=== PATIENT | female | born 1985 | race Caucasian/White ===

== ENCOUNTER 2017-12-03 20:23 | Emergency (ER) | payer OTHER ==
[2017-12-03 21:15] LABS: APPEARANCE,URINE SLIGHTLY-CLOUDY; BILIRUBIN,URINE NEGATIVE (NEGATIVE); COLOR,URINE YELLOW; GLUCOSE, URINE NEGATIVE (NEGATIVE); KETONES,URINE TRACE mg/dL (NEGATIVE); LEUKOCYTE ESTERASE,URINE NEGATIVE (NEGATIVE); NITRITE,URINE NEGATIVE (NEGATIVE); PROTEIN,URINE NEGATIVE (NEGATIVE); URINE SPECIFIC GRAVITY 1.028
[2017-12-03 21:23] LABS: ABSOLUTE BASOPHILS # (AUTO) 0.1 10^3/uL (0.0-0.2); ABSOLUTE EOSINOPHILS # (AUTO) 0.2 10^3/uL (0.0-0.6); ABSOLUTE LYMPHOCYTES (AUTO) 2.4 10^3/uL (0.5-4.7); ABSOLUTE MONOCYTES (AUTO) 0.7 10^3/uL (0.1-1.4); BASOPHILS % (AUTO) 1.1 % (0-2); EOSINOPHILS % (AUTO) 2.1 % (0-6); HEMATOCRIT 41.6 % (36.0-47.0); HEMOGLOBIN 14.2 g/dL (12.0-15.5); MEAN CORPUSCULAR HEMOGLOBIN 29.6 pg (27.0-33.4); MEAN CORPUSCULAR HGB CONC 34.3 g/dL (32.0-36.0); MEAN CORPUSCULAR VOLUME 87 fl (80-97); MONOCYTES % (AUTO) 7.2 % (3-13); PLATELET COUNT 245 10^3/uL (150-450); RED BLOOD COUNT 4.81 10^6/uL (3.72-5.28); RED CELL DISTRIBUTION WIDTH 13.4 % (11.5-14.0); SEGMENTED NEUTROPHILS % (AUTO) 63.6 % (42-78); TOTAL CELLS COUNTED % (AUTO) 100 %; WHITE BLOOD COUNT 9.4 10^3/uL (4.0-10.5)
--- NOTE | 2017-12-03 21:42 | ER Document Report ---
ED General - General Chief Complaint: Abdominal Pain Stated Complaint: ABDOMINAL PAIN Time Seen by Provider: 12/03/17 21:29 Mode of Arrival: Ambulatory Information source: Patient Notes: This is a 32-year-old female with a history of a dermoid cyst removal 2 years ago who presents with left-sided abdominal pain. She denies any vomiting or diarrhea. She was referred to the ER by the urgent care. Patient denies any vaginal discharge. Patient states she is started a new diet (keto-diet: no carbs) approximately 1 month ago. She denies any diarrhea, blood in stool, vaginal discharge, fever. TRAVEL OUTSIDE OF THE [place] IN LAST 30 DAYS: No - HPI Onset: Last week Onset/Duration: Gradual Quality of pain: Dull Severity: Mild Pain Level: 1 Associated symptoms: denies: Chills, Diarrhea, Fever, Nausea, Vomiting Exacerbated by: Denies Relieved by: Denies Similar symptoms previously: No Recently seen / treated by doctor: Yes - Related Data Allergies/Adverse Reactions: Sulfa (Sulfonamide Antibiotics) Allergy (Verified 12/03/17 20:26) Past Medical History - General Information source: Patient - Social History Smoking Status: Never Smoker Cigarette use (# per day): No Chew tobacco use (# tins/day): No Frequency of alcohol use: Occasional Drug Abuse: None Lives with: Family Family History: None Patient has suicidal ideation: No Patient has homicidal ideation: No - Medical History Medical History: Negative Renal/ Medical History: Denies: Hx Peritoneal Dialysis Past Surgical History: Reports: Hx Gynecologic Surgery - Dermoid cyst removal Review of Systems - Review of Systems Constitutional: denies: Chills, Fever EENT: No symptoms reported Cardiovascular: No symptoms reported Respiratory: No symptoms reported Gastrointestinal: See HPI Genitourinary: No symptoms reported Female Genitourinary: No symptoms reported Musculoskeletal: No symptoms reported Skin: No symptoms reported Hematologic/Lymphatic: No symptoms reported Neurological/Psychological: No symptoms reported Physical Exam - Vital signs Vitals: Temp Pulse Resp BP Pulse Ox 97.9 F 73 16 136/79 H 98 12/03/17 20:33 12/03/17 20:33 12/03/17 20:33 12/03/17 20:33 12/03/17 20:33 Notes: Physical exam: GENERAL: An-year-old female, alert and oriented 3, no acute distress HEAD: Atraumatic, normocephalic. EYES: Pupils equal round and reactive to light, extraocular movements intact, sclera anicteric, conjunctiva are normal. ENT: TMs normal, nares patent, oropharynx clear without exudates. Moist mucous membranes. NECK: Normal range of motion, supple without obvious mass or JVD. LUNGS: Breath sounds clear to auscultation bilaterally and equal. No wheezes rales or rhonchi. HEART: Regular rate and rhythm without murmurs, rubs or gallops. ABDOMEN: Soft, normoactive bowel sounds. Mild left lower quadrant tenderness to palpation. No guarding, no rebound. No masses appreciated. EXTREMITIES: Normal range of motion, no pitting or edema. No clubbing or cyanosis. NEUROLOGICAL: Cranial nerves II through XII grossly intact. Normal speech, moving all extremities. PSYCH: Normal mood, normal affect. SKIN: Warm, Dry, normal turgor, no rashes or lesions noted. Course - Re-evaluation Re-evalutation: 12/04/17 03:20 Patient's abdomen remains soft and benign. Discussed results of the CT with her. She will follow-up with primary care doctor. I have advised her to stop the new diet to go back to her regular pattern and see what the results would be on her symptoms. 12/04/17 03:20 - Vital Signs Vital signs: Temp Pulse Resp BP Pulse Ox 98.4 F 67 16 114/73 100 12/04/17 00:32 12/04/17 00:32 12/04/17 00:32 12/04/17 00:32 12/04/17 00:32 - Laboratory Result Diagrams: 12/03/17 21:10 12/03/17 21:10 Laboratory results interpreted by me: 12/03/17 12/03/17 21:00 21:10 BUN 23 H AST 55 H Urine Ketones TRACE H Urine Urobilinogen 2.0 H - Diagnostic Test Radiology reviewed: Image reviewed, Reports reviewed - Mild colitis Discharge - Discharge Clinical Impression: Abdominal pain Condition: Stable Disposition: HOME, SELF-CARE Additional Instructions: As we discussed, the CT showed a mild colitis. Your lab results look quite good. At this point, I would recommend going back to normal diet (come off of the keto diet), drink plenty fluids as you have been doing. Follow-up with your primary care doctor and bring a copy of today's labs with you. The one incidental finding on the CT scan was that you do have a 5.8 cm cyst on the right ovary and they do recommend repeating an ultrasound in 6-12 weeks to reassess. Cysts are fairly common and they often will come and go. As far as the abdominal pain, return to the emergency room for worsening pain, fever (temperature greater than 100.5) or any concerns or getting worse. If you are unable to follow-up with primary care doctor, I left the number for 3 primary care doctors affiliated with the hospital. Dr. Aranza Stafford [address], [place] [address] [phone] Dr Man Address: [address] [place] [address] , [place] [address] Dr Bob Address: [address] [place] [address] , [place] [address]
[2017-12-03 21:56] LABS: ALANINE AMINOTRANSFERASE 22 U/L (9-52); ALBUMIN 4.6 g/dL (3.5-5.0); ALKALINE PHOSPHATASE 72 U/L (38-126); ANION GAP 11 (5-19); ASPARTATE AMINO TRANSFERASE 55 U/L (14-36); BILIRUBIN,DIRECT 0.4 mg/dL (0.0-0.4); BLOOD UREA NITROGEN 23 mg/dL (7-20); CALCIUM 9.8 mg/dL (8.4-10.2); CARBON DIOXIDE 28 mmol/L (22-30); CHLORIDE 103 mmol/L (98-107); GLUCOSE 93 mg/dL (75-110); LIPASE 80.5 U/L (23-300); POTASSIUM 4.1 mmol/L (3.6-5.0); SODIUM 141.9 mmol/L (137-145); TOTAL PROTEIN 8.1 g/dL (6.3-8.2)
--- NOTE | 2017-12-03 23:06 | RADIOLOGY REPORT (SQ) ---
EXAM DESCRIPTION: CT ABD/PELVIS WITH IV ONLY CLINICAL HISTORY: 32 years Female, llq abd pain COMPARISON: None. TECHNIQUE: No contrast. Coronal and sagittal reformat. This exam was performed according to our departmental dose-optimization program, which includes automated exposure control, adjustment of the mA and/or kV according to patient size and/or use of iterative reconstruction technique. FINDINGS: Mild diffuse bowel wall thickening of the left colon and sigmoid. 5.6 cm cystic component of the right adnexa, likely benign. Ultrasound follow-up recommended in 6-12 weeks. Minimal fluid in the pelvic cul-de-sac. IUD appears adequate. No evidence of appendicitis. Appendix is not discerned. Inferior thorax, liver, gallbladder, pancreas, spleen, adrenals, renal system, gastrointestinal tract, pelvic organs, lymphatics, vasculature, and musculoskeleton appear otherwise unremarkable. IMPRESSION: 1. Mild colitis pattern. 2. A 5.6 cm cystic component of the right adnexa, likely benign. Ultrasound follow-up recommended in 6-12 weeks.
[2017-12-04 00:34] VITALS: BP 114/73
== END 2017-12-04 00:32 | disposition home or self-care (01) ==
LOC: ER 20:23
DX: R10.9 Unspecified abdominal pain (principal); Z88.2 Allergy status to sulfonamides
CPT/HCPCS: 36415; 74177; 80053; 81001; 81025; 83690; 85025; 99284